=== PATIENT | male | born 1970 | race Caucasian/White ===

== ENCOUNTER 2016-11-03 22:46 | Inpatient (IN) | payer MEDICARE, OTHER ==
--- NOTE | ~2016-11-03 | PA ---
Unit #: [id number] #: [id number] Patient: BLAS GRANADOS [id number] [facility] [address] [place] [address] [id number] I MR#: [id number] NAME: BLAS GRANADOS ROOM: 82 Age: 46 Sex: M Admission Date: 11/03/2016 : 1970 Date of Assessment: Attending Physician: Josias Isabel M.D. Admitting Physician: Josias Isabel M.D. Primary Care Physician: Primary Care Physician No PSYCHIATRIC ASSESSMENT INFORMANTS The patient reliability, poor; chart, reliability good. CHIEF COMPLAINT Depression and opioid use. HISTORY OF PRESENT ILLNESS Mr. Blas Granados is a 46-year-old male, seen on , presented with the above-mentioned complaint. The patient presented due to suicidal ideation and substance abuse. The patient reported continued to use substance despite overdosing and negative consequences. The patient reported diagnosed with bipolar disorder. The patient reported history of suicide attempt in 2008. The patient reported feeling sad and depressed due to strained relationship with children and . The patient reported using opioid and cannabis and most recent use on 11/03/2016. The patient denied any homicidal ideation or any psychotic symptom. The patient reported tobacco use, age of onset 15; marijuana, age of onset 15; crack cocaine, 21; opioid, age of onset 37; amphetamine, age of onset 31; and prescription medication, age of onset 38. The patient reported history of IV drug use; history of hepatitis; current symptoms of abdominal cramping, muscle cramping, diaphoresis, diarrhea, depressed mood, headache, irritability, poor appetite, restlessness, rhinorrhea, and tremors. Needing inpatient admission at this time for psychiatric stabilization. PAST PSYCHIATRIC HISTORY Remarkable for history of previous treatment at [facility] in the past. FAMILY HISTORY AND SOCIAL HISTORY The patient has a good support from his family, but having strained relationship. Family psychiatric illness is unavailable at this time. No history of any abuse. MEDICAL HISTORY Remarkable for history of hepatitis C, back problem. Musculoskeletal; muscle strength and tone, no atrophy or abnormal movement. Gait normal. MEDICATION HISTORY None. ALLERGIES Unit #: [id number] #: [id number] Patient: BLAS GRANADOS No known drug allergies. SUBSTANCE ABUSE HISTORY Please see above. REVIEW OF SYSTEMS HEENT: Eyes, clear. Ears, nose, mouth, and throat; clear. CARDIOVASCULAR: Unremarkable. RESPIRATORY: Unremarkable. GI: Unremarkable. : Unremarkable. SKIN: Unremarkable. LYMPH NODE: Unremarkable. NEUROLOGIC: Unremarkable. ENDOCRINE: Unremarkable. HEMATOLOGIC: Unremarkable. ALLERGIC/IMMUNOLOGIC: Unremarkable. MUSCULOSKELETAL: Muscle strength and tone, no atrophy or abnormal movement. Gait normal except as mentioned above. MENTAL STATUS EXAMINATION CONSTITUTIONAL: Measurement of vital signs; temperature 98.4, pulse 79, respirations 17, and blood pressure 110/77. Height 5 feet 10 inches and weight 160 pounds. GENERAL APPEARANCE: The patient dressed casually. Hygiene and grooming, poor. The patient did not show any facial deformity. PSYCHIATRIC EXAMINATION Description of speech, slow in rate. Description of thought process, circumstantial. Description of association; guarded, paranoid, mood lability, substance abuse. Description of the patient's judgment: Concerning everyday activity, poor. Social situation, poor. Concerning psychiatric condition, poor. Complete mental status examination; oriented in time, place, and person. Attention span and concentration, fair. Language; able to name object, repeat phrases. Fund of knowledge; aware of current event, passive vocabulary intact. Mood and affect, sad and dysphoric. Insight and judgment, poor. ASSETS AND LIABILITIES Assets; the patient is articulate, able to take care of his ADL. Liabilities; history of substance abuse, depression. ADMITTING DIAGNOSES Psychiatric: 1. Mood disorder, not otherwise specified, F32.9. 2. Rule out bipolar mood disorder. 3. Opioid use disorder, moderate, F11.20. Secondary diagnosis: Deferred. Medical diagnoses: Hepatitis C, chronic back problem. Stressors: Psychosocial stressors. PSYCHIATRIC PLAN, TREATMENT GOAL, AND DISCHARGE PLAN 1. Advised to admit the patient on the inpatient unit. Provide safe, supportive, and structured environment. Unit #: [id number] #: [id number] Patient: BLAS GRANADOS 2. Ordered labs; CBC, CMP, UA, and UDS. 3. Precaution for aggression, self-harm, detox protocol, and detox monitoring. 4. The patient is to attend all the programming on the inpatient unit. 5. Treatment goal is to attain euthymic mood, gain insight into his problem, and learn coping skills. 6. Discharge plan: Plan is to stabilize the patient and consider followup in outpatient program. ESTIMATED LENGTH OF STAY 5 to 7 days. Dictated by... Chapin Olsen/angela TD: 11/04/2016 20:44 JOB #: [id number] PSYCHIATRIC ASSESSMENT X Josias Isabel MD PSYCHIATRIC ASSESSMENT
--- NOTE | ~2016-11-03 | HP ---
Unit #: [id number] #: [id number] Patient: BLAS GRANADOS [id number] [place] [address] [id number] I MR#: [id number] NAME: BLAS GRANADOS ROOM: 82 Age: 46 Sex: M Admission Date: 11/03/2016 : 1970 Attending Physician: Josias Isabel M.D. Admitting Physician: Josias Isabel M.D. Primary Care Physician: Primary Care Physician No HISTORY AND PHYSICAL HISTORY OF PRESENT ILLNESS Blas is a 46 year old admitted to [facility] because of his continued polysubstance abuse. PAST MEDICAL HISTORY 1. Long history of poly illicit substance abuse to include IV heroin. 2. Hepatitis C. 3. Degenerative disc disease. a. Chronic back pain. PAST SURGICAL HISTORY Nothing reported. ALLERGIES No known drug allergies. SOCIAL HISTORY Smokes one pack per day. Drinks alcohol on occasion. Admits to a long history of opioid abuse to include IV heroin. FAMILY HISTORY Medically noncontributory. REVIEW OF SYSTEMS CONSTITUTIONAL: No fever or chills. HEENT: Denies any sore throat, ear pain or runny nose. CARDIOVASCULAR: Denies chest pain, irregular heart rhythm or palpitations. CHEST: Denies shortness of breath or cough. No hemoptysis. GASTROINTESTINAL: Denies nausea, vomiting, diarrhea or chronic constipation. ENDOCRINE: Denies history of increased thirst or urination. No recent significant weight loss or gain. GENITOURINARY: Denies dysuria, frequency, or hematuria. SKIN: Denies any rashes. HEMATOLOGIC: Denies history of increased bleeding or bruising. MUSCULOSKELETAL: Denies any hot, swollen joints. No generalized muscle pain. NEUROLOGIC: Denies problems with vision or speech. No frequent, severe headaches. No numbness, tingling or weakness in any extremities. Denies loss of bladder or bowel control. CURRENT MEDICATIONS Unit #: [id number] #: [id number] Patient: BLAS GRANADOS Detox protocol PHYSICAL EXAMINATION GENERAL: Alert, well-nourished, in no apparent distress. VITAL SIGNS: Blood pressure 110/76, heart rate 80, respirations 16, temperature 98.6. WEIGHT: 160 pounds. HEIGHT: 5'10". SKIN: Warm and dry without rash or lesion. HEENT: Normocephalic. TMs not viewed. Oral and nasal passages clear. Conjunctivae clear. Pupils equal, round and reactive to light and accommodation. Extraocular movements intact. NECK: Supple without lymphadenopathy or thyromegaly. HEART: Regular rate and rhythm without murmur. LUNGS: Clear. ABDOMEN: Soft, nontender. : Not done. EXTREMITIES: No evidence of cyanosis, clubbing or edema. Moves all extremities without focal deficit. NEUROLOGICAL: Grossly within normal limits. Cranial Nerves: II: Visual walden are intact. III, IV AND : Extraocular movements are intact. Pupils are equal, round and reactive to light. V: Facial sensation is grossly normal. VII: Facial movements and expression are normal. VIII: Auditory acuity grossly intact. IX, X: Uvula is midline. Phonation is normal. XI: Patient shrugs shoulders and turns head normally. XII: Tongue protrudes in the midline. Sensory and Motor Function: Sensory and motor sensation is grossly normal. Motor: moves all extremities well. Coordination: Gait is normal. Deep Tendon Reflexes: Intact. IMPRESSION Psychiatric admission. RECOMMENDATIONS PSYCHIATRIC: Per psychiatrist. MEDICAL: I see no contraindications to participating in facility's activities. MEDICAL PROGNOSIS Good. MEDICAL CONDITION Stable. Dictated by... Safia RainesAFior-Randy. for Chapin Huitron/anderson TD: 11/05/2016 05:09 JOB #: [id number] Unit #: [id number] #: [id number] Patient: BLAS GRANADOS HISTORY AND PHYSICAL X Raina Mayo HISTORY AND PHYSICAL
--- NOTE | ~2016-11-03 | DS ---
Unit #: [id number] #: [id number] Patient: CHAN GRANADOS [id number] [place] [address] [id number] I MR#: [id number] NAME: CHAN GRANADOS ROOM: [facility] Age: 46 Sex: M Admission Date: 11/03/2016 : 1970 Discharge Date: 11/06/2016 Attending Physician: Josias Isabel M.D. Primary Care Physician: Primary Care Physician No DISCHARGE SUMMARY REASON FOR ADMISSION Suicidal ideation and substance abuse. DIAGNOSTIC STUDIES LABORATORY RESULTS: Remarkable for urine drug screen positive for benzodiazepine, amphetamine, marijuana, and opioids. HOSPITAL COURSE The patient was admitted to inpatient unit on 11/03/2016 and discharged on 11/06/2016. The patient was treated on the inpatient unit with group therapy, individual therapy, medication management, chemical dependency group, detox protocol, and detox monitoring. The patient showed improvement with the above modalities of treatment and responded well. Subsequently, the patient was discharged with a plan to follow up in outpatient clinic. The patient was discharged on no medication as the patient reported that he has medication at home. The patient was on Desyrel 100 mg at bedtime for sleep while he was in the hospital. DISCHARGE MEDICATIONS None. DISCHARGE DIAGNOSES Psychiatric: 1. Opioid use disorder, severe, F11.20. 2. Marijuana abuse, moderate, F12.20. 3. Mood disorder, not otherwise specified. Secondary diagnosis: Deferred. Medical diagnoses: Long history of polysubstance abuse, hepatitis C, degenerative disk disease, chronic pain. Stressors: Psychosocial stressors. DISCHARGE INSTRUCTIONS The patient is to follow up in outpatient clinic as per medical social worker. CONDITION ON DISCHARGE The patient was pleasant and cooperative. Denied any psychotic symptom or any suicidal ideation. PROGNOSIS Guarded. Unit #: [id number] #: [id number] Patient: CHAN GRANADOS DIET AND ACTIVITY As tolerated. Dictated by... Chapin Olsen/angela TD: 11/06/2016 15:37 JOB #: [id number] DISCHARGE SUMMARY X Josias Isabel MD X DISCHARGE SUMMARY
--- NOTE | ~2016-11-03 | PN ---
Unit #: [id number] #: [id number] Patient: BLAS CARVER [id number] [facility] [address] [place] [address] [id number] I MR#: [id number] NAME: BLAS CARVER ROOM: [facility] Age: 46 Sex: M Admission Date: 11/03/2016 : 1970 Attending Physician: Josias Isabel M.D. Admitting Physician: Josias Isabel M.D. Primary Care Physician: Primary Care Physician Justina PENA NOTES DATE 11/05/2016 DISCUSSION Mr. Blas Carver is a 46-year-old male. The patient interviewed, chart reviewed. Obtained information from nursing staff on 11/05/2016. The patient reported still feeling somewhat anxious, nervous but denied any suicidal or homicidal ideation, withdrawn, isolative, flat affect, guarded. The patient was agreeable to go into outpatient program with a plan for tomorrow. The patient reported having trouble sleeping therefore ordered trazodone. Complete review of systems unremarkable. MENTAL STATUS EXAMINATION General appearance, the patient dressed casually. Attention span and concentration fair. Oriented to place and person. Mood and affect sad, dysphoric. Speech monotone. Thought process concrete. The patient denied any thoughts of harming self or others but guarded. Flat affect. Sad, dysphoric mood. Withdrawn, isolative. Recent and remote memory poor. Insight and judgement poor. Mood disorder NOS. DIAGNOSES 1. Mood disorder NOS. 2. Rule out major depressive disorder. 3. Polysubstance abuse. ASSESSMENT/PLAN Advise to continue with current medication and therapeutic protocol. We will monitor response to medication and make further adjustment of medication if needed. Consider further adjustment of medication. We will monitor the patient mood and behavior closely. Dictated by... Chapin Olsen/anderson TD: 11/06/2016 22:34 JOB #: [id number] Unit #: [id number] #: [id number] Patient: BLAS CARVER PROGRESS NOTES X Josias Isabel MD PROGRESS NOTE
[2016-11-04 12:35] LABS: BASOPHIL# 0.1 X10e3 (0-0.3); BASOPHIL% 1.1 % (0-2.5); EOSINOPHIL# 0.4 X10e3 (0-0.7); EOSINOPHIL% 7.4 % (0.0-7.0); HEMATOCRIT 42.3 % (38.0-50.0); HEMOGLOBIN 14.7 gm/dL (13.0-16.0); LYMPHOCYTE# 2.5 X10e3 (1.0-3.5); LYMPHOCYTE% 48.2 % (17.0-45.0); MEAN CORPUSCULAR HEMOGLOBIN 33.6 PG (28-34); MEAN CORPUSCULAR HGB CONC 34.6 g/dL (30-36); MONOCYTE# 0.5 X10e3 (0-1.0); MONOCYTE% 10.5 % (3.0-12.0); NEUTROPHIL# 1.7 X10e3 (1.5-7.1); NEUTROPHIL% 32.8 % (40-75); RED BLOOD COUNT 4.36 X10e (3.90-5.60); RED CELL DISTRIBUTION WIDTH 13.6 % (11.0-15.5); WHITE BLOOD COUNT 5.1 X10e3 (4.0-10.5)
[2016-11-04 12:51] LABS: ALBUMIN SERUM 3.1 g/dL (3.5-5.0); ALKALINE PHOSPHATASE 61 U/L (32-92); ALT (SGPT) 78 U/L (10-40); AST (SGOT) 102 U/L (10-42); BILIRUBIN,TOTAL 0.6 mg/dL (0.2-2.0); BLOOD UREA NITROGEN 8 mg/dL (9-23); BUN/CREATININE RATIO 11.42; CARBON DIOXIDE 31 mmol/L (22-31); CHLORIDE 104 mmol/L (100-111); CREATININE SERUM 0.7 mg/dL (0.6-1.4); GLOM FILT RATE Estimated ABOVE60 mL/min (>60); GLUCOSE FASTING 89 mg/dL (70-110); POTASSIUM 4.3 mmol/L (3.5-5.1); PROTEIN TOTAL SERUM 6.2 g/dL (6.0-8.3); SODIUM 142 mmol/L (135-145)
[2016-11-04 13:07] LABS: DIFF IND YES; PLATELET COUNT 75 X10e3 (140-420)
[2016-11-04 13:12] LABS: ANISOCYTOSIS SL; PLATELET ESTIMATE DECREASED (NORMAL); RBC NORMAL YES
[2016-11-04 13:13] LABS: SMUDGE CELLS 2 /100
[2016-11-05 08:52] LABS: URINE SOURCE CLEAN CATCH
[2016-11-05 09:53] LABS: URINE APPEARANCE CLEAR; URINE BILIRUBIN NEG (NEG); URINE BLOOD NEG (NEG); URINE COLOR DK YELLOW; URINE GLUCOSE NEG (NEG); URINE KETONE NEG (NEG); URINE LEUKOCYTE ESTERASE TRACE (NEG); URINE NITRATE NEG (NEG); URINE PROTEIN NEG (NEG); URINE SPECIFIC GRAVITY 1.022 (1.003-1.035)
[2016-11-05 09:59] LABS: URINE BACTERIA AUWI NEG (NEGATIVE); URINE SQUAMOUS EPITHELIAL CELL NONE SEEN /[HPF]; UWBCS1 AUWI 0-2 (0-5)
[2016-11-05 11:00] LABS: AMPHETAMINE POS (NEG); BARBITURATES NEG (NEG); BENZODIAZEPINES POS (NEG); COCAINE NEG (NEG); MARIJUANA POS (NEG); OPIATES POS (NEG); TRICYCLIC ANTIDEPRESSANTS NEG (NEG); U METHADONE NEG (NEG)
== END 2016-11-06 12:30 | disposition home or self-care (01) | DRG 885 ==
LOC: P1E 22:46
PROVIDERS: Psychiatry & Neurology Psychiatry
PROC: HZ2ZZZZ Detoxification Services for Substance Abuse Treatment (ICD-10-PCS; principal; 2016-11-03)
DX: F39 Unspecified mood [affective] disorder (principal); F11.20 Opioid dependence, uncomplicated; R45.851 Suicidal ideations; B19.20 Unspecified viral hepatitis C without hepatic coma; G89.29 Other chronic pain; M54.9 Dorsalgia, unspecified; F41.9 Anxiety disorder, unspecified; F12.20 Cannabis dependence, uncomplicated; F17.200 Nicotine dependence, unspecified, uncomplicated; F32.9 Major depressive disorder, single episode, unspecified
CPT/HCPCS: 80053; 80307; 81003; 84439; 85025; 86592